=== PATIENT | female | born 1940 | race Caucasian/White ===

== ENCOUNTER 2018-02-17 19:06 | Emergency (ER) | payer MEDICARE ==
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
[2018-02-17] MEDS ORDERED: PROPOFOL EMUL 10MG/ML 20 ML VL IVP ONE (19:20)
[2018-02-17] MEDS ORDERED: fentaNYL CITR 100 MCG/2 ML AMP IVP ONE (19:20)
[2018-02-17] MEDS ORDERED: NS(*) 0.9% 500 ML BAG 500 ML IV ONE (19:25)
--- NOTE | 2018-02-17 20:41 | RADIOLOGY IMAGING REPORT ---
[place] [facility] [place] NAME: Claribel Johnson : 1940 MR: [id number] V: [id number] EXAM DATE: ORDERING PHYSICIAN: VIPUL LEMA TECHNOLOGIST: Location: [facility] - [place] Patient: Claribel Johnson : 1940 Visit/Account:[id number] Date of Sevice: 02/17/2018 EXAMINATION: Left shoulder 2 views, obtained at 7:44 PM. Left shoulder 3 views, obtained at 8:03 PM. HISTORY: Proximal humerus fracture. COMPARISON: Outside left shoulder films earlier same day. FINDINGS: First study performed at 7:44 PM demonstrates a mildly impacted fracture traversing the surgical neck of the proximal left humerus, with impaction along the medial fracture margin. Fracture line likely extends through the greater tuberosity. Humeral head maintains alignment with bony glenoid. The left clavicle is intact, with normal alignment at the acromioclavicular joint. Osteopenia, with mild underlying degenerative changes at the glenohumeral and acromioclavicular joint s. Second study at 8:03 PM was performed after manipulation and placement of a splint. Stable alignment of the proximal left humerus fracture. No other new osseous findings. IMPRESSION: Mildly impacted fracture through the surgical neck of the proximal left humerus, with li jaielne fracture extending to the greater tuberosity. Stable alignment following splint placement. Report Dictated By: Sumeet Linton MD at 02/17/2018 8:34 PM Report E-Signed By: Sumeet Linton MD at 02/17/2018 8:38 PM WSN:[id number]
--- NOTE | 2018-02-17 20:41 | RADIOLOGY IMAGING REPORT ---
FACILITY: [facility] PATIENT NAME: Claribel Johnson : 1940 MR: [id number] V: [id number] EXAM DATE: ORDERING PHYSICIAN: VIPUL LEMA TECHNOLOGIST: Location: [facility] - [place] Patient: Claribel Johnson : 1940 Visit/Account:[id number] Date of Sevice: 02/17/2018 EXAMINATION: Left shoulder 2 views, obtained at 7:44 PM. Left shoulder 3 views, obtained at 8:03 PM. HISTORY: Proximal humerus fracture. COMPARISON: Outside left shoulder films earlier same day. FINDINGS: First study performed at 7:44 PM demonstrates a mildly impacted fracture traversing the surgical neck of the proximal left humerus, with impaction along the medial fracture margin. Fracture line likely extends through the greater tuberosity. Humeral head maintains alignment with bony glenoid. The left clavicle is intact, with normal alignment at the acromioclavicular joint. Osteopenia, with mild underlying degenerative changes at the glenohumeral and acromioclavicular joint s. Second study at 8:03 PM was performed after manipulation and placement of a splint. Stable alignment of the proximal left humerus fracture. No other new osseous findings. IMPRESSION: Mildly impacted fracture through the surgical neck of the proximal left humerus, with li jailene fracture extending to the greater tuberosity. Stable alignment following splint placement. Report Dictated By: Sumeet Linton MD at 02/17/2018 8:34 PM Report E-Signed By: Sumeet Linton MD at 02/17/2018 8:38 PM WSN:[id number]
[2018-02-17] MEDS ORDERED: APAP/HYDROCODONE 325/5 TAB PO ONE (20:55)
[2018-02-17] MEDS ORDERED: ACET/HYDROC 5/325MG TH ER ONLY 2 TAB/BOTTLE PO ONE (20:55)
[2018-02-17 21:30] VITALS: BP 92/68
[2018-02-17] MEDS ORDERED: LOR5/325 PO (21:59)
== END 2018-02-17 22:14 | disposition home or self-care (01) ==
LOC: ER 19:12
DX: S42.202A Unspecified fracture of upper end of left humerus, initial encounter for closed fracture (principal); W18.30XA Fall on same level, unspecified, initial encounter
CPT/HCPCS: 23605; 73030; 96360; 99152; 99153; 99285; A4565; A9270; J2704; J7040; 99284